=== PATIENT | male | born 1970 | race Caucasian/White ===

== ENCOUNTER 2018-07-11 14:35 | Emergency (ER) | payer MEDICAID ==
[~2018-07-11] VITALS: Ht 162.6 cm; Wt 60.0 kg
[2018-07-11] MEDS ORDERED: KEPP250 PO (14:51)
[2018-07-11] MEDS ORDERED: CARB200T PO (14:51)
[2018-07-11] MEDS ORDERED: IBUPROFEN 600MG TABLET PO ONE (17:45)
[2018-07-11] MEDS ORDERED: LIDOCAINE HCL 1% 20ML VIAL (Pyxis) INJ INFIL ONE (17:45)
[2018-07-11 18:56] VITALS: BP 140/80
== END 2018-07-11 18:57 | disposition home or self-care (01) ==
LOC: ER 17:45
DX: S01.511A Laceration without foreign body of lip, initial encounter (principal); X58.XXXA Exposure to other specified factors, initial encounter; Y93.89 Activity, other specified; Y92.89 Other specified places as the place of occurrence of the external cause; Y99.8 Other external cause status; Z98.890 Other specified postprocedural states
CPT/HCPCS: 12011; 99283; J3490

== ENCOUNTER 2024-06-25 13:28 | Emergency (ER) | payer BC, OTHER ==
[~2024-06-25] VITALS: Ht 167.6 cm; Wt 64.0 kg
[~2024-06-25 13:28] MED LIST: LEVE750T66 MT; [UNRECOGNIZED DRUG - CODE] PO
[2024-06-25 13:32] VITALS: TEMP 98; O2SAT 98
[2024-06-25 14:18] LABS: BASOPHILS % 0.6 % (0.0-2.0); EOSINOPHILS % 0.4 % (0.0-5.0); HEMATOCRIT. 37.7 % (42.0-52.0); HEMOGLOBIN. 12.7 g/dL (14.0-18.0); MEAN CORPUSCULAR HEMOGLOBIN 32.5 pg (28.0-32.0); MEAN CORPUSCULAR HGB CONC 33.6 g/dL (31.0-37.0); MEAN CORPUSCULAR VOLUME 96.6 fL (80.0-94.0); MEAN PLATELET VOLUME 7.1 fl (7.4-10.4); MONOCYTES % 8.2 % (2.0-8.0); NEUTROPHILS % 56.8 % (40.0-76.0); PLATELET 352 x1000/uL (130-400); RED CELL DISTRIBUTION WIDTH 13.6 % (11.6-14.6); WHITE BLOOD COUNT 6.7 x1000/uL (4.5-11.0)
[2024-06-25 14:26] LABS: CHLORIDE 95 mEq/L (98-107); POTASSIUM 3.8 mEq/L (3.5-5.1); SODIUM 125 mEq/L (136-145)
[2024-06-25 14:27] LABS: CARBON DIOXIDE 23 mEq/L (21-32)
[2024-06-25 14:28] LABS: CALCIUM 8.7 mg/dL (8.7-10.4)
[2024-06-25 14:32] LABS: CREATININE 0.6 mg/dL (0.6-1.3); GLUCOSE 81 mg/dL (70-105)
[2024-06-25 14:33] LABS: ETHANOL BLOOD 201 mg/dL (<10)
[2024-06-25 14:50] LABS: UREA NITROGEN BLOOD < 5 mg/dL (9-23)
[2024-06-25] MEDS: LEVETIRACETAM 500MG TABLET PO ONE (15:14)
[2024-06-25 15:25] LABS: CLARITY URINE CLEAR (CLEAR); COLOR URINE YELLOW (YELLOW); GLUCOSE URINE NEGATIVE (NEGATIVE); KETONES URINE NEGATIVE (NEGATIVE); LEUKOCYTE ESTERASE URINE NEGATIVE (NEGATIVE); NITRITE URINE NEGATIVE (NEGATIVE); OCCULT BLOOD URINE NEGATIVE (NEGATIVE); PH URINE 7.5 (4.5-8.0); PROTEIN URINE NEGATIVE (NEGATIVE); SPECIFIC GRAVITY URINE 1.006 (1.005-1.030); UROBILINOGEN URINE 0.2 E.U./dL (0.2-1.0)
[2024-06-25 15:58] LABS: *AMPHETAMINES SCREEN URINE NEGATIVE (NEGATIVE)
[2024-06-25 15:59] LABS: *BARBITURATES SCREEN URINE NEGATIVE (NEGATIVE); *BENZODIAZEPINES SCREEN URINE NEGATIVE (NEGATIVE); *COCAINE SCREEN URINE NEGATIVE (NEGATIVE); CANNABINOID URINE SCREEN NEGATIVE (NEGATIVE); ECSTASY MDMA SCREEN URINE NEGATIVE (NEGATIVE); METHADONE URINE SCREEN NEGATIVE (NEGATIVE); OPIATES URINE SCREEN NEGATIVE (NEGATIVE); PHENCYCLIDINE URINE SCREEN NEGATIVE (NEGATIVE)
[2024-06-25] MEDS: SODIUM CHLORIDE 0.9% 1,000 ML IV ONE (16:02)
[2024-06-25 17:40] VITALS: BP 119/74; PULSE 79; RESP 16; O2SAT 100
[2024-06-25] MEDS ORDERED: KEPP500 MT (18:02)
[2024-06-25] MEDS: CHLORDIAZEPOXIDE 25MG CAPSULE PO ONE (18:35)
== END 2024-06-25 19:50 | disposition home or self-care (01) ==
LOC: ER 13:28
DX: G40.909 Epilepsy, unspecified, not intractable, without status epilepticus (principal); T51.0X1A Toxic effect of ethanol, accidental (unintentional), initial encounter; E87.1 Hypo-osmolality and hyponatremia; Y92.9 Unspecified place or not applicable
CPT/HCPCS: 80305; 80048; 81003; 80320; 85025; 36415; 93005; 96360; 99284; J7030; Z7610 ×4; G0480

== ENCOUNTER 2024-11-13 03:53 | Emergency (ER) | payer BC, OTHER ==
[~2024-11-13] VITALS: Ht 160 cm; Wt 59.0 kg
[~2024-11-13 03:53] MED LIST changes: +KEPP500 MT
[2024-11-13 03:58] VITALS: O2SAT 100
[2024-11-13 05:24] LABS: BASOPHILS % 0.5 % (0.0-2.0); EOSINOPHILS % 0.9 % (0.0-5.0); HEMATOCRIT. 37.2 % (42.0-52.0); HEMOGLOBIN. 12.6 g/dL (14.0-18.0); LYMPHOCYTES % 35.5 % (20.0-50.0); MEAN CORPUSCULAR HEMOGLOBIN 33.1 pg (28.0-32.0); MEAN CORPUSCULAR HGB CONC 33.9 g/dL (31.0-37.0); MEAN CORPUSCULAR VOLUME 97.5 fL (80.0-94.0); MEAN PLATELET VOLUME 7.7 fl (7.4-10.4); MONOCYTES % 10.3 % (2.0-8.0); NEUTROPHILS % 52.8 % (40.0-76.0); PLATELET 350 x1000/uL (130-400); RED BLOOD CELL COUNT 3.81 mill/uL (4.7-6.1); RED CELL DISTRIBUTION WIDTH 13.7 % (11.6-14.6); WHITE BLOOD COUNT 6.8 x1000/uL (4.5-11.0)
[2024-11-13 05:36] LABS: CHLORIDE 100 mEq/L (98-107); POTASSIUM 3.9 mEq/L (3.5-5.1); SODIUM 137 mEq/L (136-145)
[2024-11-13 05:37] LABS: CALCIUM 8.8 mg/dL (8.7-10.4); CARBON DIOXIDE 24 mEq/L (21-32)
[2024-11-13 05:42] LABS: CLARITY URINE CLEAR (CLEAR); COLOR URINE YELLOW (YELLOW); CREATININE 0.6 mg/dL (0.6-1.3); ETHANOL BLOOD 90 mg/dL (<10); GLUCOSE 91 mg/dL (70-105); GLUCOSE URINE NEGATIVE (NEGATIVE); KETONES URINE NEGATIVE (NEGATIVE); LEUKOCYTE ESTERASE URINE NEGATIVE (NEGATIVE); NITRITE URINE NEGATIVE (NEGATIVE); OCCULT BLOOD URINE NEGATIVE (NEGATIVE); PROTEIN URINE NEGATIVE (NEGATIVE); SPECIFIC GRAVITY URINE 1.005 (1.005-1.030); UREA NITROGEN BLOOD 6 mg/dL (9-23); UROBILINOGEN URINE 0.2 E.U./dL (0.2-1.0)
[2024-11-13 05:43] LABS: TROPONIN I HIGH SENSITIVITY 7 ng/L (3.0-53)
[2024-11-13 06:00] VITALS: TEMP 36.6
[2024-11-13 06:03] LABS: *AMPHETAMINES SCREEN URINE NEGATIVE (NEGATIVE); *BARBITURATES SCREEN URINE NEGATIVE (NEGATIVE); *BENZODIAZEPINES SCREEN URINE NEGATIVE (NEGATIVE); *COCAINE SCREEN URINE NEGATIVE (NEGATIVE); METHADONE URINE SCREEN NEGATIVE (NEGATIVE); OPIATES URINE SCREEN NEGATIVE (NEGATIVE)
[2024-11-13 06:04] LABS: CANNABINOID URINE SCREEN NEGATIVE (NEGATIVE); ECSTASY MDMA SCREEN URINE NEGATIVE (NEGATIVE); PHENCYCLIDINE URINE SCREEN NEGATIVE (NEGATIVE)
[2024-11-13 07:37] LABS: TROPONIN I HIGH SENSITIVITY 6 ng/L (3.0-53)
[2024-11-13 08:45] VITALS: BP 134/84; PULSE 89; RESP 15; O2SAT 100
== END 2024-11-13 10:30 | disposition home or self-care (01) ==
LOC: ER 03:53 → CANBEDREQ 08:17 → ER 10:30
DX: G40.909 Epilepsy, unspecified, not intractable, without status epilepticus (principal); R41.82 Altered mental status, unspecified; Z79.899 Other long term (current) drug therapy
CPT/HCPCS: 36415; 80048; 80305; 80320; 81003; 84484; 85025; 93005; 99284; G0480

== ENCOUNTER 2025-01-14 18:54 | Emergency (ER) | payer OTHER ==
[~2025-01-14] VITALS: Ht 162.6 cm; Wt 68.0 kg
[~2025-01-14 18:54] MED LIST changes: -LEVE750T66 MT; +LEVE750T83 MT
[2025-01-14 18:58] VITALS: O2SAT 100
[2025-01-14 19:27] VITALS: BP 110/66; PULSE 66; RESP 11; TEMP 36.9; O2SAT 100
[2025-01-14 20:07] LABS: BASOPHILS % 0.8 % (0.0-2.0); EOSINOPHILS % 0.6 % (0.0-5.0); HEMATOCRIT. 36.1 % (42.0-52.0); HEMOGLOBIN. 12.4 g/dL (14.0-18.0); LYMPHOCYTES % 43.5 % (20.0-50.0); MEAN CORPUSCULAR HEMOGLOBIN 33.6 pg (28.0-32.0); MEAN CORPUSCULAR HGB CONC 34.3 g/dL (31.0-37.0); MEAN CORPUSCULAR VOLUME 97.9 fL (80.0-94.0); MONOCYTES % 11.2 % (2.0-8.0); NEUTROPHILS % 43.9 % (40.0-76.0); RED BLOOD CELL COUNT 3.69 mill/uL (4.7-6.1); RED CELL DISTRIBUTION WIDTH 13.8 % (11.6-14.6); WHITE BLOOD COUNT 6.8 x1000/uL (4.5-11.0)
[2025-01-14 20:14] LABS: CHLORIDE 98 mEq/L (98-107); POTASSIUM 3.9 mEq/L (3.5-5.1); SODIUM 130 mEq/L (136-145)
[2025-01-14 20:15] LABS: CALCIUM 8.6 mg/dL (8.7-10.4); CARBON DIOXIDE 22 mEq/L (21-32)
[2025-01-14 20:20] LABS: CREATININE 0.8 mg/dL (0.6-1.3); ETHANOL BLOOD 261 mg/dL (<10); GLUCOSE 94 mg/dL (70-105); UREA NITROGEN BLOOD 9 mg/dL (9-23)
[2025-01-14] MEDS: LEVETIRACETAM 500MG TABLET PO ONE (20:24)
[2025-01-14 20:42] LABS: DIFFERENTIAL COMMENT 1
[2025-01-14 21:18] LABS: MEAN PLATELET VOLUME 7.8 fl (7.4-10.4); PLATELET 280 x1000/uL (130-400)
[2025-01-14] MEDS ORDERED: [UNRECOGNIZED DRUG - CODE] PO (21:26)
[2025-01-14] MEDS ORDERED: LEVE750T83 MT (21:26)
[2025-01-15] MEDS ORDERED: AMLO5TAB88 PO (15:23)
[2025-01-15] MEDS ORDERED: LEVE500T19 PO (15:23)
[2025-01-15] MEDS ORDERED: CARB300C9 PO (15:23)
[2025-01-16] MEDS ORDERED: CARB300C9 MT (13:43)
[2025-01-16] MEDS ORDERED: LEVE1000 PO (13:43)
[2025-01-16] MEDS ORDERED: AMLO5TAB88 MT (13:43)
== END 2025-01-15 04:07 | disposition home or self-care (01) ==
LOC: ER 18:59
DX: R56.9 Unspecified convulsions (principal); F10.129 Alcohol abuse with intoxication, unspecified; Y90.8 Blood alcohol level of 240 mg/100 ml or more; Z79.899 Other long term (current) drug therapy
CPT/HCPCS: 80048; 80320; 83690; 85025; 36415; 99284; Z7610 ×2; A4606; G0480